=== PATIENT | female | born 1935 | race Caucasian/White ===

== ENCOUNTER → 2016-08-23 | Outpatient (CLI) | payer MEDICARE, OTHER ==
[~2016-08-23] MED LIST: 'CLONIDINE0.1 MG PO; ASPIR 8181 MG PO; CIPROFLOXACIN500 MG PO; CLARITIN10 MG PO; CLONIDINE0.2 MG PO; COZAAR100 MG PO; COZAAR25 MG PO; Catapres-Tts 10.1 MG PO; FIBER LAXATIVE500 MG PO; GLIPIZIDE10 MG PO; HYDR25T PO; HYZAAR 50/12.5M1 TAB PO; LORAZEPAM0.5 MG PO; LOSARTAN POTASS1 TAB PO; LOTRISONE 0.05%1 CRE TP; METFORMIN1000 MG PO; METOPROLOL SUCC50 M1 PO; OXYBUTYNIN5 MG PO; SYNTHROID,LEVO75 MCG PO; VISTARIL50 MG PO; ZITHROMAX Z PA250 MG PO; ZOFRAN4 MG PO
== END | disposition home or self-care (01) ==
LOC: US 13:12
DX: I73.9 Peripheral vascular disease, unspecified (principal); M79.89 Other specified soft tissue disorders

== ENCOUNTER 2018-06-25 15:26 | Inpatient (IN) | payer MEDICARE ==
[~2018-06-25] VITALS: Ht 160 cm; Wt 67.3 kg
--- NOTE | ~2018-06-25 | WRIGHTHP ---
[place], [place] PATIENT HISTORY AND PHYSICAL EXAM NAME: LESLIE RODRIGUEZ [facility] #: [id number] UNIT #: [id number] ROOM: 525 DOCTOR: DEIDRE COVARRUBIAS MD BIRTHDATE: [birth year] DOS: 06/25/2018 HISTORY OF PRESENT ILLNESS: This patient is very well known to us, comes in with complaints of abdominal pain about 3 days duration. The patient states that she was eating a lot of popcorn and peanuts and about 3 days ago, she noticed that her abdomen was starting to hurt. She denies having any chest pains or palpitations, does not have any fever or chills, does not have any nausea and emesis. PAST MEDICAL HISTORY: Significant for; 1. Benign hypertension, poorly controlled. 2. Hypothyroidism. 3. Type 2 diabetes mellitus, non-insulin dependent. MEDICATIONS: That she is on are Lasix 40 daily, glipizide 10 daily, levothyroxine 88 mcg daily, metformin 1000 b.i.d., metoprolol 50 daily, minoxidil 2.5 mg b.i.d. SOCIAL HISTORY: Nonsmoker, does not use any alcohol. Lives at home. PHYSICAL EXAMINATION: GENERAL: She is awake and alert and oriented. VITAL SIGNS: Graphic trend shows a pressure of 132/70 this morning, but her pressure was 200 systolic, during the night. NECK: Supple. No lymph nodes. LUNGS: Diminished breath sounds. No wheezes, rales or rhonchi heard. HEART: Regular. ABDOMEN: Obese, soft. Tenderness diffusely, more on the right side of the abdomen, the right lower quadrant. EXTREMITIES: Without any edema. ASSESSMENT AND PLAN: 1. Acute diverticulitis. The patient has been placed on IV antibiotics and IV fluids. We will start on a clear liquid diet. GI consultation has been obtained. 2. Benign hypertension, poorly controlled, readjust antihypertensives. 3. Type 2 diabetes mellitus, non-insulin dependent. Hold oral antidiabetics since the patient is not eating well, we will restart when the patient is better. 4. Acute kidney injury, possibly from infectious process. IV fluids will be ordered and redo basic metabolic panel, metformin may not be a good medication first and the GFR is below 30. 5. Anemia. Check iron, B12 and folic acid level and treat accordingly. [place], [place] PATIENT HISTORY AND PHYSICAL EXAM NAME: LESLIE RODRIGUEZ UNIT #: [id number] ROOM: [facility] DOCTOR: DEIDRE COVARRUBIAS MD BIRTHDATE: [birth year] DEIDRE COVARRUBIAS MD CM:HISPHYS:PATIENT HISTORY AND PHYSICAL EXAMINATION 5 7 DEIDRE COVARRUBIAS MD 06/26/18907 interface
--- NOTE | ~2018-06-25 | CON ---
[place], [place] REPORT OF CONSULTATION NAME: LESLIE RODRIGUEZ UNIT #: [id number] ROOM: 525 DOCTOR: NINA JEFFERSONJUWAN BIRTHDATE: [birth year] DOS: 06/26/2018 GASTROINTESTINAL CONSULTATION HISTORY OF PRESENT ILLNESS: An 82-year-old patient who presented with right lower and right upper quadrant pain, had to be admitted through the Emergency Room after she was found to have white blood cell of 12 with H and H of 10 and 31. Comprehensive metabolic panel: BUN and creatinine 42 and 2.0. GFR of 28. Electrolytes balance, liver function tests, amylase, and lipase within normal limit. CT scan of the abdomen and pelvis was done. Findings most consistent with diverticulitis involving the ascending colon noticed. CBC differential was reassessed. H and H dropped to 7.9 and 24, white blood cell of 6 after start of Flagyl and ciprofloxacin was noticed. Iron was 27. B12 and folate was 208 and greater than 24 respectively. PAST MEDICAL HISTORY: Associated hypertension, anxiety, right upper quadrant pain, and diverticulosis. PAST SURGICAL HISTORY: Associated with ventral hernia and repair and mesh placement. SOCIAL HISTORY: Nonsmoker, nonalcohol consumer. FAMILY HISTORY: Noncontributory. MEDICATIONS: List has been reviewed including levothyroxine supplementation. ALLERGIES: CODEINE, QUININE, IVP DYE. REVIEW OF SYSTEMS: HEENT: Denies double vision, blurred vision. RESPIRATORY: Denies shortness of breath. CARDIOVASCULAR: Denies chest pain. DIGESTIVE SYSTEM: Right upper quadrant pain. A colonoscopy approximately 2 years ago. PHYSICAL EXAMINATION: VITAL SIGNS: Appear to be stable. HEENT: Within normal limit. NECK: Supple, no thyromegaly. CHEST: Symmetric anatomy, equal expansion. HEART: Irregular irregularity with a soft grade 2/6 systolic murmur. ABDOMEN: Soft. Some tenderness in right middle ascending colon was experienced. Bowel sounds present. She has a ventral hernia upon exertion. A vertical incision line from subxiphoid to supraumbilical area was noticed. EXTREMITIES: A 2+ edema in left leg and 1+ edema in right leg was noticed. NEUROLOGIC: Alert and oriented to time, place, and person. LABORATORY DATA: Labs reviewed, records reviewed. [place], [place] REPORT OF CONSULTATION NAME: LESLIE RODRIGUEZ UNIT #: [id number] ROOM: [facility] DOCTOR: NINA JEFFERSON,JUWAN BIRTHDATE: [birth year] IMPRESSION: Diverticulitis of mid ascending colon, hypertension, hypothyroidism, and anxiety. All has been recognized. Leukocytosis has been recognized. PLAN AND DISCUSSION: We will continue with ciprofloxacin as well as Flagyl therapy and clinically reassess once the pain dissipates then we can switch her to p.o. same medications for a duration of 10 days to complete. Thank you very much indeed. JUWAN WOOD MD CM:CONSTR:REPORT OF CONSULTATION [id number] 07/04/18 1316 interface
--- NOTE | ~2018-06-25 | DS ---
[place], [place] DISCHARGE SUMMARY NAME: LESLIE RODRIGUEZ UNIT #: [id number] ROOM: 525 DOCTOR: DEIDRE COVARRUBIAS MD BIRTHDATE: [birth year] DOS: 06/28/2018 DIAGNOSES: 1. Acute diverticulitis of ascending colon. 2. Chronic kidney disease with acute kidney injury, stage 4. 3. Hypothyroidism. 4. Benign hypertension, poorly controlled. 5. Type 2 diabetes mellitus, becoming insulin-dependent now. History of perforated bowel and repair, history of hernia surgery, anemia of chronic disease, B12 deficiency. HOSPITAL COURSE: The patient is 82 years old, is known to us, comes in with complaint of abdominal pain. Please refer to H and P for details. After admission, the patient was found to have diverticulitis versus an ascending colon on a CT of the abdomen and pelvis. The patient was placed on IV antibiotics and was admitted. Dr. Segura was consulted who agreed on the treatment plan. She was placed on a clear liquid diet. Her diabetic meds were on hold because of clear liquid diet. She also has underlying chronic kidney disease with worsening of the kidney functions and with GFR is below 30. So she is no longer a candidate for metformin, which will be discontinued and placed on Lantus, glipizide has also been discontinued. Diabetic teaching will be offered before discharge. She also does have anemia, which is found to have both B12 deficiency and anemia of chronic disease. The patient did receive one dose of Ferrlecit here. She will follow up with doctor and receive the Epogen injections as an outpatient. The patient is encouraged to have a colonoscopy also as an outpatient. She sees [facility] for that. DISCHARGE MEDICATIONS: Cipro 500 b.i.d., insulin 15 units subcutaneous at 5:00 p.m., clonidine 0.2 mg at bedtime, metoprolol 50 daily, levothyroxine 88 mcg daily, Lasix 40 daily, minoxidil 2.5 b.i.d. [place], [place] DISCHARGE SUMMARY NAME: LESLIE RODRIGUEZ UNIT #: [id number] ROOM: 525 DOCTOR: DEIDRE COVARRUBIAS MD BIRTHDATE: [birth year] DEIDRE COVARRUBIAS MD CM:MARII [phone] DEIDRE COVARRUBIAS MD 07/10/18 0901 interface
--- NOTE | ~2018-06-25 | PR ---
[place], [place] PROGRESS NOTE NAME: [id number] UNIT #: [id number] ROOM: 525 DOCTOR: DEIDRE COVARRUBIAS MD BIRTHDATE: [birth year] DOS: 06/28/2018 SUBJECTIVE: The patient is doing better, does not have any new complaints, but abdominal pain is much improved. OBJECTIVE: VITAL SIGNS: Blood pressure is 124/66, pulse of 50, respirations 20, temperature 98.1. LUNGS: Diminished breath sounds, clear. HEART: Regular. ABDOMEN: Obese, soft. Tenderness is much improved in the right lower quadrant. EXTREMITIES: Without any edema. LABORATORY DATA: Shows WBC count is 4.9, hemoglobin 7.9, hematocrit 24.6, platelets 195. BMP: Glucose 128, BUN 24, creatinine 1.65, GFR 30, sodium 140, potassium 3.9, chloride 112, bicarbonate 22. ASSESSMENT AND PLAN: 1. Acute diverticulitis of the ascending colon. The patient is clinically much improved. We will give her a diet today and if stable, the plan is to discharge her to home. 2. Type 2 diabetes mellitus. She has not received the metformin and glipizide because of her diet has been clear liquids only. Unfortunately, because of the chronic kidney disease and GFR of 30, we will have to discontinue the metformin, discontinue glipizide also and placed on a low dose Lantus. Diabetic teaching will be ordered. 3. Benign hypertension, better controlled after adding clonidine. The patient is stable and can be discharged. The patient to follow with [facility] as well as doctor for her anemia. DEIDRE COVARRUBIAS MD CM:PNTRANS DEIDRE COVARRUBIAS MD 07/10/18 0902 interface
--- NOTE | ~2018-06-25 | PR ---
[place], [place] PROGRESS NOTE NAME[id number] #: [id number] ROOM: 525 DOCTOR: DEIDRE COVARRUBIAS MD BIRTHDATE: [birth year] DOS: 06/27/2018 SUBJECTIVE: The patient states that she feels much better, does not have any complaints. Appreciate Dr. Segura's input. OBJECTIVE: VITAL SIGNS: Blood pressure is 162/64, pulse of 48, respirations 16, temperature 98.2. LUNGS: Diminished breath sounds, clear. HEART: Regular. ABDOMEN: Obese, soft, some diffuse tenderness present mostly in the right lower quadrant. EXTREMITIES: Without any edema. LABORATORY DATA: Shows an iron which is 27, ferritin which is 43.4. B12 was 208, iron binding capacity is 307. WBC count is 4.6, hemoglobin is 7.6, hematocrit 23.3. BMP: Glucose 86, BUN 37, creatinine 1.81, GFR 27, sodium 138, potassium 3.7, chloride 107, bicarbonate 23. ASSESSMENT AND PLAN: 1. Acute diverticulitis on IV antibiotics. GI following, is mostly in the ascending colon. 2. Acute kidney injury. The kidney function seems to be slightly better. Creatinine is slightly better. GFR is still pretty low suggestive of stage 4 kidney failure. 3. Anemia, Ferrlecit will be ordered today. 4. B12 deficiency. We will start B12 injections. 5. Benign hypertension, poorly controlled. Further adjustments in medications to be made. DEIDRE COVARRUBIAS MD CM:PNGIFTY [id number] DEIDRE COVARRUBIAS MD 06/27/18 0950 interface
[~2018-06-25 15:26] MED LIST changes: +GLIPIZIDE10 M2 PO; -GLIPIZIDE10 MG PO
[2018-06-25 15:42] VITALS: BP 178/68
[2018-06-25] MEDS ORDERED: Synthroid,Levo88 MCG PO (15:58)
[2018-06-25] MEDS ORDERED: LASIX40 MG PO (16:00)
[2018-06-25] MEDS ORDERED: MINOXIDIL2.5 MG PO (16:01)
[2018-06-25 16:14] LABS: BASO # 0.1 10*3/uL (0.0-0.1); BASO % 0.4 % (0.0-1.0); EOS # 0.1 10*3/uL (0.0-0.4); EOS % 1.1 % (1.0-4.0); HEMATOCRIT 31.7 % (37.0-47.0); HEMOGLOBIN 10.5 g/dl (12.0-16.0); LYMPH # 1.2 10*3/uL (1.3-4.4); LYMPH % 9.7 % (27.0-41.0); MEAN CELL VOLUME 83.6 fl (81.0-99.0); MEAN CORPUSCULAR HGB 27.7 pg (27.0-31.0); MEAN CORPUSCULAR HGB CONC 33.1 g/dl (33.0-37.0); MEAN PLATELET VOLUME 12.1 fl (9.6-12.3); MONO # 1.1 10*3/uL (0.1-1.0); MONO % 8.6 % (3.0-9.0); NEUT # 9.8 10*3/uL (2.3-7.9); PLATELET COUNT AUTOMATED 254 10*3/uL (130-400); RED BLOOD COUNT 3.79 10*6/uL (4.10-5.10); RED CELL DISTRI WIDTH 13.5 % (0-14.5); WHITE BLOOD COUNT 12.3 10*3/uL (4.8-10.8)
[2018-06-25 16:29] LABS: ALBUMIN 4.1 gm/dl (3.1-4.5); CREATININE 2.04 mg/dL (0.55-1.02); POTASSIUM 4.5 mmol/L (3.5-5.1); TOTAL PROTEIN 8.1 gm/dL (6.4-8.2)
[2018-06-25 17:11] LABS: BILIRUBIN NEGATIVE (NEGATIVE); BLOOD NEGATIVE (NEGATIVE); CLARITY CLEAR (CLEAR); COLOR YELLOW (YELLOW); GLUCOSE NEGATIVE (NEGATIVE); KETONE NEGATIVE (NEGATIVE); LEUKO ESTERASE NEGATIVE (NEGATIVE); NITRITE NEGATIVE (NEGATIVE); PH 5.5 (5.0-9.0); UROBILINOGEN 0.2 E.U./dl (0.2-1.0)
[2018-06-25 17:17] LABS: BACTERIA TRACE; EPITHELIAL CELLS 0-3; WBC 0-2 wbc/hpf (0-5)
[2018-06-25 20:00] VITALS: BP 189/53
[2018-06-26] VITALS: BP 106/38
[2018-06-26 07:10] LABS: BASO # 0.1 10*3/uL (0.0-0.1); BASO % 0.8 % (0.0-1.0); EOS # 0.1 10*3/uL (0.0-0.4); EOS % 2.2 % (1.0-4.0); LYMPH # 1.4 10*3/uL (1.3-4.4); LYMPH % 22.4 % (27.0-41.0); MEAN CELL VOLUME 84.8 fl (81.0-99.0); MEAN CORPUSCULAR HGB 27.3 pg (27.0-31.0); MEAN CORPUSCULAR HGB CONC 32.2 g/dl (33.0-37.0); MEAN PLATELET VOLUME 12.9 fl (9.6-12.3); MONO # 0.9 10*3/uL (0.1-1.0); MONO % 15.1 % (3.0-9.0); NEUT # 3.6 10*3/uL (2.3-7.9); NEUT % 59.3 % (47.0-73.0); PLATELET COUNT AUTOMATED 189 10*3/uL (130-400); RED BLOOD COUNT 2.89 10*6/uL (4.10-5.10); RED CELL DISTRI WIDTH 13.5 % (0-14.5)
[2018-06-26 07:14] LABS: HEMATOCRIT 24.5 % (37.0-47.0); HEMOGLOBIN 7.9 g/dl (12.0-16.0)
[2018-06-26 07:28] LABS: CREATININE 2.25 mg/dL (0.55-1.02); POTASSIUM 4.1 mmol/L (3.5-5.1)
[2018-06-26 08:00] VITALS: BP 127/49
[2018-06-26 10:23] LABS: IRON 27 ug/dL (50-170); TOTAL IRON BINDING CAPACITY 307 ug/dl (250-450)
[2018-06-26 11:04] LABS: FERRITIN 43.4 ng/mL (10.0-291.0)
[2018-06-26 12:00] VITALS: BP 136/46
[2018-06-26 16:00] VITALS: BP 142/51
[2018-06-26 20:00] VITALS: BP 149/58
[2018-06-27] VITALS: BP 144/52
[2018-06-27 07:08] LABS: BASO % 0.6 % (0.0-1.0); EOS # 0.2 10*3/uL (0.0-0.4); HEMATOCRIT 23.3 % (37.0-47.0); HEMOGLOBIN 7.6 g/dl (12.0-16.0); LYMPH % 20.7 % (27.0-41.0); MEAN CELL VOLUME 84.1 fl (81.0-99.0); MEAN CORPUSCULAR HGB 27.4 pg (27.0-31.0); MEAN CORPUSCULAR HGB CONC 32.6 g/dl (33.0-37.0); MONO # 0.7 10*3/uL (0.1-1.0); MONO % 15.6 % (3.0-9.0); NEUT # 2.7 10*3/uL (2.3-7.9); NEUT % 57.9 % (47.0-73.0); PLATELET COUNT AUTOMATED 186 10*3/uL (130-400); RED BLOOD COUNT 2.77 10*6/uL (4.10-5.10); RED CELL DISTRI WIDTH 13.4 % (0-14.5); WHITE BLOOD COUNT 4.6 10*3/uL (4.8-10.8)
[2018-06-27 07:48] LABS: POTASSIUM 3.7 mmol/L (3.5-5.1)
[2018-06-27 07:49] LABS: CREATININE 1.81 mg/dL (0.55-1.02)
[2018-06-27 08:00] VITALS: BP 162/64
[2018-06-27 16:00] VITALS: BP 133/49
[2018-06-27 20:00] VITALS: BP 166/58
[2018-06-28] VITALS: BP 124/66
[2018-06-28 06:30] LABS: BASO % 0.8 % (0.0-1.0); EOS # 0.2 10*3/uL (0.0-0.4); EOS % 3.9 % (1.0-4.0); HEMATOCRIT 24.6 % (37.0-47.0); HEMOGLOBIN 7.9 g/dl (12.0-16.0); LYMPH # 0.8 10*3/uL (1.3-4.4); LYMPH % 15.9 % (27.0-41.0); MEAN CELL VOLUME 85.1 fl (81.0-99.0); MEAN CORPUSCULAR HGB 27.3 pg (27.0-31.0); MEAN CORPUSCULAR HGB CONC 32.1 g/dl (33.0-37.0); MEAN PLATELET VOLUME 12.3 fl (9.6-12.3); MONO # 0.8 10*3/uL (0.1-1.0); MONO % 15.7 % (3.0-9.0); NEUT # 3.1 10*3/uL (2.3-7.9); NEUT % 63.5 % (47.0-73.0); PLATELET COUNT AUTOMATED 195 10*3/uL (130-400); RED BLOOD COUNT 2.89 10*6/uL (4.10-5.10); RED CELL DISTRI WIDTH 13.5 % (0-14.5); WHITE BLOOD COUNT 4.9 10*3/uL (4.8-10.8)
[2018-06-28 08:00] VITALS: BP 127/61
[2018-06-28 08:01] LABS: CREATININE 1.65 mg/dL (0.55-1.02); POTASSIUM 3.9 mmol/L (3.5-5.1)
[2018-06-28] MEDS ORDERED: CIPRO500 MG PO (08:39)
[2018-06-28] MEDS ORDERED: LANTUS SOL100 UNIT/1 SC (08:39)
[2018-06-28] MEDS ORDERED: CLONIDINE0.2 MG PO (08:40)
== END 2018-06-28 14:59 | disposition home health service (06) | DRG 391 ==
LOC: ED 15:26 → 5E 19:21 → EDHOLD 19:21 → 5E 19:30
PROVIDERS: Internal Medicine; Nurse Practitioner Family
DX: K57.32 Diverticulitis of large intestine without perforation or abscess without bleeding (principal); N17.0 Acute kidney failure with tubular necrosis; N18.4 Chronic kidney disease, stage 4 (severe); F41.9 Anxiety disorder, unspecified; I12.9 Hypertensive chronic kidney disease with stage 1 through stage 4 chronic kidney disease, or unspecified chronic kidney disease; E53.8 Deficiency of other specified B group vitamins; D63.8 Anemia in other chronic diseases classified elsewhere; E11.22 Type 2 diabetes mellitus with diabetic chronic kidney disease; E03.9 Hypothyroidism, unspecified; Z88.5 Allergy status to narcotic agent; Z88.1 Allergy status to other antibiotic agents; Z91.041 Radiographic dye allergy status

== ENCOUNTER → 2019-03-21 | Outpatient (CLI) | payer MEDICARE ==
[~2019-03-21] MED LIST changes: +CIPRO500 MG PO; +LANTUS SOL100 UNIT/1 SC; +LASIX40 MG PO; +MINOXIDIL2.5 MG PO; +Synthroid,Levo88 MCG PO
== END | disposition home or self-care (01) ==
LOC: US 11:58
DX: R60.0 Localized edema (principal); D64.9 Anemia, unspecified

== ENCOUNTER → 2019-04-11 | Outpatient (CLI) | payer MEDICARE ==
[~2019-04-11] MED LIST changes: +BUMETANIDE1 MG PO; +CLONIDINE HCL0.2 MG PO; +HYDRALAZINE HYD50 MG PO; +NORMODYNE,TRAN200 MG PO
[2019-04-11 12:44] LABS: ALBUMIN 3.9 gm/dl (3.1-4.5); CREATININE 1.97 mg/dL (0.55-1.02); POTASSIUM 4.7 mmol/L (3.5-5.1); TOTAL PROTEIN 7.4 gm/dL (6.4-8.2)
== END | disposition home or self-care (01) ==
LOC: LAB 11:35
PROVIDERS: Internal Medicine
DX: N18.3 Chronic kidney disease, stage 3 (moderate) (principal)

== ENCOUNTER 2019-04-19 15:30 | Inpatient (IN) | payer MEDICARE ==
[2019-04-19] VITALS (9 sets, daily range): BP systolic 158–243; BP diastolic 53–88
[~2019-04-19] VITALS: Ht 162.5 cm; Wt 58.5 kg
[~2019-04-19 15:30] MED LIST changes: -BUMETANIDE1 MG PO; -CLONIDINE HCL0.2 MG PO; -HYDRALAZINE HYD50 MG PO; -NORMODYNE,TRAN200 MG PO
[2019-04-19 16:26] LABS: BASO # 0.1 10*3/uL (0.0-0.1); EOS # 0.2 10*3/uL (0.0-0.4); EOS % 3.3 % (1.0-4.0); HEMATOCRIT 31.7 % (37.0-47.0); HEMOGLOBIN 10.3 g/dl (12.0-16.0); LYMPH # 1.3 10*3/uL (1.3-4.4); LYMPH % 18.9 % (27.0-41.0); MEAN CELL VOLUME 79.4 fl (81.0-99.0); MEAN CORPUSCULAR HGB 25.8 pg (27.0-31.0); MEAN CORPUSCULAR HGB CONC 32.5 g/dl (33.0-37.0); MONO # 0.7 10*3/uL (0.1-1.0); MONO % 10.6 % (3.0-9.0); NEUT # 4.5 10*3/uL (2.3-7.9); NEUT % 65.9 % (47.0-73.0); PLATELET COUNT AUTOMATED 223 10*3/uL (130-400); RED BLOOD COUNT 3.99 10*6/uL (4.10-5.10); RED CELL DISTRI WIDTH 16.3 % (0-14.5); WHITE BLOOD COUNT 6.9 10*3/uL (4.8-10.8)
[2019-04-19 16:40] LABS: ACT PARTIAL THROMBO TIME 23.8 SECONDS (20.0-32.1); INTERNATIONAL NORM RATIO 0.9 (2.0-3.5)
[2019-04-19 16:40] LABS: BILIRUBIN NEGATIVE (NEGATIVE); BLOOD TRACE-INTACT (NEGATIVE); CLARITY CLEAR (CLEAR); COLOR YELLOW (YELLOW); GLUCOSE NEGATIVE (NEGATIVE); KETONE NEGATIVE (NEGATIVE); LEUKO ESTERASE NEGATIVE (NEGATIVE); NITRITE NEGATIVE (NEGATIVE); UROBILINOGEN 0.2 E.U./dl (0.2-1.0)
[2019-04-19 16:41] LABS: ALBUMIN 3.6 gm/dl (3.1-4.5); ALKALINE PHOSPHATASE 69 U/L (45-117); BUN 33 mg/dl (7-24); CHLORIDE 103 mmol/L (98-107); CREATININE 1.71 mg/dL (0.55-1.02); LIPASE 182 U/L (73-393); POTASSIUM 4.4 mmol/L (3.5-5.1); SGOT/AST 21 IU/L (3-35); SGPT/ALT 20 U/L (12-78); SODIUM 135 mmol/L (136-145); TOTAL PROTEIN 6.9 gm/dL (6.4-8.2)
[2019-04-19 16:44] LABS: TROPONIN I < 0.015 ng/ml (<0.045)
[2019-04-19 16:47] LABS: EPITHELIAL CELLS 0-2; RBC 0-2 rbc/hpf (0-2)
--- NOTE | 2019-04-19 18:41 | NUR ---
A 83, admitted to 5E, under the services of DEIDRE Palm MD with a diagnosis of CHF, HTN. Chief complaint is LOWER LEG EDEMA. Patient arrived via ambulatory from ER. Monitor applied. Initial assessment completed. Vital signs taken and recorded. DEIDRE PALM MD notified of admission to the unit. Orders received. See assessment for past medical history, medications and allergies. Patient and/or family oriented to unit. [facility] visitation policy reviewed. Clothing/patient valuable form completed. ROYAL ESTRELLA
[2019-04-19] MEDS ORDERED: CLONIDINE HCL0.2 MG PO (18:59)
--- NOTE | 2019-04-19 20:51 | NUR ---
CONSULT CALLED TO DR MONROY PER ORDER. SPOKE WITH DR RO AND NOTIFIED PHYSICIAN OF ALL ASSESSMENT FINDINGS. NEW ORDERS RECEIVED FOR A ONE TIME DOSE OF 2MG BUMEX VIA IV NOW. PHYSICIAN STATES THAT DR MONROY WILL SEE PATIENT IN THE MORNING. WILL NOTIFY PATIENT OF NEW ORDERS.
--- NOTE | 2019-04-19 21:08 | NUR ---
PT GIVEN EVENING MEDICATIONS AT THIS TIME. ASSESSMENT COMPLETE. PT STATES THAT SHE FEELS ANXIOUS. PT BLOOD PRESSURE ELEVATED AT THIS TIME. WILL NOTIFY PHYSICIANS. PT LYING IN BED, ALL SAFETY MEASURES IN PLACE. CALL LIGHT.
--- NOTE | 2019-04-19 21:55 | NUR ---
SPOKE WITH DR COVARRUBIAS REGARDING PT ANXIETY. NEW ORDERS RECEIVED TO GIVE PATIENT 0.5 MG PO ATIVAN X 1 NOW. WILL MEDICATE PATIENT WHEN MEDICATION VERIFIED. WILL NOTIFY PATIENT OF NEW ORDERS.
--- NOTE | 2019-04-19 22:26 | NUR ---
PT GIVEN 2 MG BUMEX VIA IV AND 0.5 MG PO ATIVAN AT THIS TIME. WILL MONITOR FOR EFFECTIVENESS. CALL LIGHT IN REACH.
--- NOTE | 2019-04-19 23:26 | NUR ---
ATIVAN EFFECTIVE PER PT.
[2019-04-20] VITALS (7 sets, daily range): BP systolic 150–162; BP diastolic 56–68
[2019-04-20 06:18] LABS: BASO # 0.1 10*3/uL (0.0-0.1); BASO % 1.1 % (0.0-1.0); EOS # 0.2 10*3/uL (0.0-0.4); EOS % 3.3 % (1.0-4.0); HEMATOCRIT 31.2 % (37.0-47.0); HEMOGLOBIN 10.1 g/dl (12.0-16.0); LYMPH # 1.2 10*3/uL (1.3-4.4); LYMPH % 18.2 % (27.0-41.0); MEAN CELL VOLUME 78.6 fl (81.0-99.0); MEAN CORPUSCULAR HGB 25.4 pg (27.0-31.0); MEAN CORPUSCULAR HGB CONC 32.4 g/dl (33.0-37.0); MEAN PLATELET VOLUME 13.4 fl (9.6-12.3); MONO # 0.8 10*3/uL (0.1-1.0); NEUT # 4.1 10*3/uL (2.3-7.9); NEUT % 65.1 % (47.0-73.0); PLATELET COUNT AUTOMATED 192 10*3/uL (130-400); RED BLOOD COUNT 3.97 10*6/uL (4.10-5.10); RED CELL DISTRI WIDTH 16.3 % (0-14.5); WHITE BLOOD COUNT 6.3 10*3/uL (4.8-10.8)
[2019-04-20 06:22] LABS: CHOLESTEROL 152 mg/dL (<200); HDL CHOLESTEROL 57 mg/dl (40-60); LDL CHOLESTEROL 77 mg/dL (9-159); TRIGLYCERIDES 89 mg/dl (<150); VLDL CHOLESTEROL 18 mg/dL (6-40)
--- NOTE | 2019-04-20 09:00 | NUR ---
Notcher in to talk to patient. Patient states lives at home alone with her 2 boys checking in on her. There are basement steps in the home. Physician: Dr. Veronica Neff Pharmacy: [facility] Home health services: none Patient's level of ADLs: INDEPENDENT Patient has working utilities: yes DME: acorn power chair, chair lift, cane, BSC Follow-up physician's appointment after d/c: she prefers to make her own follow up appt after discharge Does patient want to access PORTAL?: no Discharge plan discussed with patient. She lives at home alone with her 2 sons checking in on her. She is independent in her ADLs and occasionally uses a cane for ambulation when she feels uneasy. She did just get a new acorn power chair and has a chair lift in the living room. She does have basement steps where her laundry is located. She states she has a day bed on her sun porch she can use if she is not able to go upstairs. Discussed home health care services and she denies any home needs at this time. When medically stable she will be discharged to home. Son will transport om discharge. FRED SANTANA
--- NOTE | 2019-04-20 10:23 | NUR ---
requests to eat breakfast first. will return to complete echo.
--- NOTE | 2019-04-20 19:00 | NUR ---
BEDSIDE REPORT RECEIVED AT THIS TIME. PT SITTING UP IN BED, ALERT ORIENTED AND PLEASANT MOOD. PT HAS NO COMPLAINTS AT THIS TIME. RESPIRATIONS EASY AND UNLABORED ON ROOM AIR. WILL CONTINUE TO MONITOR. ALL SAFETY MEASURES IN PLACE. CALL LIGHT IN REACH.
--- NOTE | 2019-04-20 22:39 | NUR ---
PT C/O ANXIETY AND REQUESTS DOSE OF 0.5 MG PO ATIVAN, THIS IS TAKEN A HOME MEDICATION. NEW ORDERS OBTAINED FOR 0.5 MG PO ATIVAN. WILL MEDICATE PT WHEN IT IS AVAILABLE. PT AWARE.
--- NOTE | 2019-04-20 23:55 | NUR ---
LANTUS DOSAGE CHANGED FROM 15 UNITS TO 7 UNITS PER PATIENT STATING THAT IS THE DOSAGE THAT SHE TAKES AT HOME.
[2019-04-21] VITALS: BP 150/68
--- NOTE | 2019-04-21 01:42 | NUR ---
24 HR chart check completed.
--- NOTE | 2019-04-21 02:19 | NUR ---
SLEEPING RESP. EASY AND REG. NO ACUTE DISTRESS NOTED.
--- NOTE | 2019-04-21 05:57 | NUR ---
PT. UP TO BATHROOM BUT HEART BEAT WAS SINUS ARRHYTHMIA, BBB AND THEN SWITCHED BACK AGAIN TO SINUS ARRHYTHMIA. SHE DID THIS SAME THING YESTERDAY MORNING.
[2019-04-21 06:49] LABS: CREATININE 1.88 mg/dL (0.55-1.02)
[2019-04-21 12:02] VITALS: BP 176/69
[2019-04-21 16:00] VITALS: BP 182/52
[2019-04-21 20:00] VITALS: BP 218/84; BP 221/72
--- NOTE | 2019-04-21 20:05 | NUR ---
BP RECHECKED 218/84 HR FLUCTUATES BETWEEN 40'S TO 50'S CALLED DR. MONROY ANSWERING SERVICE AND HE IS TO CALL BACK.
--- NOTE | 2019-04-21 20:08 | NUR ---
DR. MONROY CALLED IN AND NOTIFIED OF BP AND HR AND MEDICATIONS. ORDERS RECEIVED TO GIVEN CLONIDINE 0.2MG NOW AND START MINOXIDIL TONIGHT 2.5MG BID.
--- NOTE | 2019-04-21 20:45 | NUR ---
CATAPRESS GIVEN PER ORDER FOR ELEVATED BP. PT. CONCERNED WITH STARTING BACK ON MEDICATIONS AND TAKING ALL THIS MEDICATION FOR HER BP. PATIENT CALLED HER SON HEIDI AND THIS RN SPOKE WITH HIM EXPLAINED WHAT WAS GOING ON WITH HER CARE AND WHY. HEIDI VOICED UNDERSTANDING AND SPOKE WITH HIS MOM.
[2019-04-21] MEDS ORDERED: LORAZEPAM0.5 MG PO (20:49)
--- NOTE | 2019-04-21 21:05 | NUR ---
CALLED AND SPOKE WITH DR. ASHRAF ABOUT PT. CONDITION AND ORDERS FROM DR. MONROY AND PT. FEELING ANXIOUS. ORDER RECEIVED FOR ATIVAN.
[2019-04-21 21:53] VITALS: BP 168/70
--- NOTE | 2019-04-21 22:00 | NUR ---
HELD COREG BECAUSE HEART RATE WAS 40'S TO 50'S. AND PT. AGREED.
[2019-04-22] VITALS (8 sets, daily range): BP systolic 128–158; BP diastolic 43–70
--- NOTE | 2019-04-22 06:00 | NUR ---
BP WAS 128/46 PT. DID NOT WANT BP MEDICATION GIVEN AT THIS TIME. WILL RECHECK.
--- NOTE | 2019-04-22 06:39 | NUR ---
24 HR chart check completed.
--- NOTE | 2019-04-22 08:00 | NUR ---
BP RECHECKED PT. IS UP IN ROOM MOVING AROUND 158/70 APRESOLINE GIVEN AT THIS TIME.
--- NOTE | 2019-04-22 20:30 | NUR ---
PATIENT SITTING IN BED IN A POSITION OF COMFORT SCROLLING ON HER CELL PHONE. PATIENT ASSESSMENT COMPLETED AT THIS TIME, DENIES ANY CHEST PAIN/PRESSURE OR SHORTNESS OF BREATH AT THIS TIME. MEDICATIONS GIVEN ORALLY WITHOUT INCIDENT. CALL LIGHT WITHIN REACH. WILL CONTINUE TO MONITOR.
[2019-04-23] VITALS (10 sets, daily range): BP systolic 100–173; BP diastolic 40–76
--- NOTE | 2019-04-23 00:20 | NUR ---
RESTING IN BED IN A POSITION OF COMFORT, RESPIRATIONS EASY AND NON LABORED AT THIS TIME, DENIES ANY PAIN OR DISTRESS. CALL LIGHT WITHIN REACH. WILL CONTINUE TO MONITOR.
[2019-04-23] MEDS ORDERED: BUMETANIDE1 MG PO (08:13)
[2019-04-23] MEDS ORDERED: NORMODYNE,TRAN200 MG PO (08:13)
[2019-04-23] MEDS ORDERED: HYDRALAZINE HYD50 MG PO (08:13)
--- NOTE | 2019-04-23 09:12 | NUR ---
NURSE WAS ALERTED TO PATIENTS ROOM, PATIENT WAS IN BATHROOM SITTING IN A CHAIR AT THE SINK, PER PT SHE FELT DIZZY AND TIRED, PT WAS 66/34 MANUAL, CALLED FOR HELP TO GE PATIENT TRANSFERRED TO HER BED, PT THEN BECAME NAUSEA AND UNRESPONSIVE, PT TRANFERRED TO BED AND [facility] CALLED, VITALS WERE STABLE AND PATIENT REGAINED CONSCIOUSNESS, BP 140/70, OZ 94% ON RA, RESP 16, O2 2L ADMINSTERED FOR COMFORT, PATIENT COOL PALE AND CLAMY, PT UNABLE TO REMEMBER WHAT HAPPENED BUT WAS ALERT AND ORIENTED PERSON AND PLACE. [facility] WAS CANCELLED AND NOTIFIED, NEW ORDERS RECEIVED VIA , PT TE BE TRAMSFERRED TO ICU FOR MONITORING
[2019-04-23 09:16] LABS: BASO # 0.1 10*3/uL (0.0-0.1); EOS # 0.3 10*3/uL (0.0-0.4); EOS % 4.4 % (1.0-4.0); HEMATOCRIT 35.4 % (37.0-47.0); HEMOGLOBIN 11.8 g/dl (12.0-16.0); LYMPH # 1.8 10*3/uL (1.3-4.4); LYMPH % 23.7 % (27.0-41.0); MEAN CELL VOLUME 78.1 fl (81.0-99.0); MEAN CORPUSCULAR HGB CONC 33.3 g/dl (33.0-37.0); MEAN PLATELET VOLUME 12.2 fl (9.6-12.3); MONO # 0.8 10*3/uL (0.1-1.0); MONO % 10.8 % (3.0-9.0); NEUT # 4.6 10*3/uL (2.3-7.9); PLATELET COUNT AUTOMATED 232 10*3/uL (130-400); RED BLOOD COUNT 4.53 10*6/uL (4.10-5.10); RED CELL DISTRI WIDTH 16.1 % (0-14.5); WHITE BLOOD COUNT 7.7 10*3/uL (4.8-10.8)
[2019-04-23 09:32] LABS: ALBUMIN 3.6 gm/dl (3.1-4.5); ALKALINE PHOSPHATASE 70 U/L (45-117); BUN 44 mg/dl (7-24); CHLORIDE 96 mmol/L (98-107); CREATININE 2.39 mg/dL (0.55-1.02); POTASSIUM 4.3 mmol/L (3.5-5.1); SGOT/AST 21 IU/L (3-35); SGPT/ALT 20 U/L (12-78); SODIUM 133 mmol/L (136-145); TOTAL PROTEIN 6.9 gm/dL (6.4-8.2)
[2019-04-23 09:35] LABS: TROPONIN I < 0.015 ng/ml (<0.045)
--- NOTE | 2019-04-23 09:45 | NUR ---
PATIENT RECEIVED TO ICU 5 FROM 5E. PATIENT ALERT AND ORIENTED AT THIS TIME. PATIENT STATES THAT SHE REMEMBERS BEING IN THE BATHROOM AND THEN WAKING UP WITH ALOT OF PEOPLE STANDING AROUND HER. BLOOD PRESSURE 100/71. SB PER CM-RATE 40'S. CALLED REGARDING LAB WORK FROM [facility] RESPONSE AND CURRENT VITAL SIGNS. NEW ORDERS RECEIVED.
--- NOTE | 2019-04-23 10:30 | NUR ---
Sewer Inspector in to see patient. No new needs or request at this time. She states "this morning she went into the bathroom to get cleaned up and called and asked for a chair because she felt she needed to sit down. When they brought me a chair I laid my head on the sink. I do not remember passing out. I remember looking up once they got me in the bed and seeing all of these people and thinking it is not my time yet. " Discussed home health care services and short term SNF and she refuses either. When medically stable she will be discharged to home.
--- NOTE | 2019-04-23 19:41 | NUR ---
PT SITTING IN CHAIR. FEET UP ON CHAIR. VS TAKEN. CALL LIGHT IN REACH. PT WITHOUT COMPLAINTS.
--- NOTE | 2019-04-23 20:47 | NUR ---
UPDATED DR COVARRUBIAS ON ABP'S AND MANUAL BP ON MY SHIFT. ORDERS RECEIVED TO DC CURRENT DOSE OF HYDRALAZINE AND INCREASE TO 100MG QID. TO CONTINUE IVF ORDERED.
--- NOTE | 2019-04-23 21:41 | NUR ---
PT EXPRESSES CONCERN WITH INCREASE IN HYDRALAZINE DOSE RIGHT BEFORE BEDTIME. ONLY ONE 50MG TABLET GIVEN PER PT REQUEST.
[2019-04-24] VITALS: BP 161/49
--- NOTE | 2019-04-24 00:08 | NUR ---
ATIVAN GIVEN AT 2150 PER PT REQUEST WAS EFFECTIVE. PT STATES RELAXED AND RETURNS TO SLEEP EASILY AFTER ASSESSMENT.
--- NOTE | 2019-04-24 03:26 | NUR ---
PT SLEEPING. HR DOES DIP INTO THE MID 40'S BUT DOES NOT SUSTAIN THAT RATE...IT QUICKLY RETURNS TO THE 60'S-70'S.
[2019-04-24 06:22] LABS: CREATININE 1.89 mg/dL (0.55-1.02); POTASSIUM 4.5 mmol/L (3.5-5.1)
[2019-04-24 08:00] VITALS: BP 166/54
--- NOTE | 2019-04-24 10:30 | NUR ---
Correctional Casework Specialist in to see patient. No new needs or request at this time. Visiting with family at her bedside. She denies any home needs. When medically stable she will be discharged to home.
[2019-04-24 12:00] VITALS: BP 204/90
--- NOTE | 2019-04-24 12:00 | NUR ---
DR RO IN ICCU AT THIS TIME AND MADE AWARE OF PT'S BP OF 204/90. HE STATED TO CONTINUE WITH CURRENT MEDS AND HE WILL SPEAK WITH DR COVARRUBIAS HIMSELF ABOUT POSSIBLE ADDING ANOTHER BP MED.
[2019-04-24 13:50] VITALS: BP 154/90
--- NOTE | 2019-04-24 19:44 | NUR ---
PATIENT GIVEN CATAPRES EARLY DUE TO ELEV BP OF 180/68. PATIENT ALSO REQUESTED AN ATIVAN TO HELP SLEEP TONIGHT. PATIENT LEFT WITH CALL LIGHT IN REACH.
[2019-04-24 20:00] VITALS: BP 180/68
[2019-04-25] VITALS: BP 160/78
[2019-04-25 04:00] VITALS: BP 140/80
--- NOTE | 2019-04-25 07:37 | NUR ---
Shift chart check completed.24 HR chart check completed.
[2019-04-25 08:00] VITALS: BP 162/80
[2019-04-25] MEDS ORDERED: 'CLONIDINE0.1 MG PO (08:12)
[2019-04-25] MEDS ORDERED: HYDRALAZINE HYD50 MG PO (08:12)
[2019-04-25] MEDS ORDERED: AMLODIPINE BESYL5 MG PO (08:13)
[2019-04-25] MEDS ORDERED: BUMETANIDE1 MG PO (08:13)
[2019-04-25 09:50] VITALS: BP 164/80
--- NOTE | 2019-04-25 09:52 | NUR ---
PRN DOSE OF CATAPRES FOR BP OF 164/80
[2019-04-25 10:30] VITALS: BP 150/82
--- NOTE | 2019-04-25 10:47 | NUR ---
DISCHARGE INSTRUCTIONS TO PT. MONITOR AND IV REMOVED. PT DISCHARGED IN STABLE CONDITION WITH ALL OF HER BELONGINGS. SHE UNDERSTANDS SHE IS TO KEEP HER APPOINTMENT WITH DR COVARRUBIAS NEXT WEEK AND [facility].
== END 2019-04-25 11:55 | disposition home or self-care (01) | DRG 305 ==
LOC: ED 15:30 → 5E 17:47 → EDHOLD 17:47 → 5E 18:00 → ICCU 04-23 09:28
PROVIDERS: Internal Medicine; Nurse Practitioner Family; ADMIT Internal Medicine
DX: I16.1 Hypertensive emergency (principal); N17.9 Acute kidney failure, unspecified; N18.4 Chronic kidney disease, stage 4 (severe); F41.1 Generalized anxiety disorder; E11.22 Type 2 diabetes mellitus with diabetic chronic kidney disease; I89.0 Lymphedema, not elsewhere classified; R00.1 Bradycardia, unspecified; T44.7X5A Adverse effect of beta-adrenoreceptor antagonists, initial encounter; I95.9 Hypotension, unspecified; E11.40 Type 2 diabetes mellitus with diabetic neuropathy, unspecified; E03.9 Hypothyroidism, unspecified; D63.8 Anemia in other chronic diseases classified elsewhere; Z79.899 Other long term (current) drug therapy; Y92.89 Other specified places as the place of occurrence of the external cause; Z90.49 Acquired absence of other specified parts of digestive tract; Z90.710 Acquired absence of both cervix and uterus; Z82.3 Family history of stroke; Z82.49 Family history of ischemic heart disease and other diseases of the circulatory system; Z88.6 Allergy status to analgesic agent; Z88.8 Allergy status to other drugs, medicaments and biological substances; Z91.041 Radiographic dye allergy status; Z93.3 Colostomy status; R35.8 Other polyuria; R55 Syncope and collapse

== ENCOUNTER → 2019-05-07 | Outpatient (CLI) | payer MEDICARE ==
[~2019-05-07] MED LIST changes: +AMLODIPINE BESYL5 MG PO; +BUMETANIDE1 MG PO; +CLONIDINE HCL0.2 MG PO; +HYDRALAZINE HYD50 MG PO; +NORMODYNE,TRAN200 MG PO
[2019-05-07 11:06] LABS: CREATININE 1.76 mg/dL (0.55-1.02); POTASSIUM 4.2 mmol/L (3.5-5.1)
== END | disposition home or self-care (01) ==
LOC: LAB 10:10
PROVIDERS: Internal Medicine
DX: I12.9 Hypertensive chronic kidney disease with stage 1 through stage 4 chronic kidney disease, or unspecified chronic kidney disease (principal); E11.22 Type 2 diabetes mellitus with diabetic chronic kidney disease; N18.9 Chronic kidney disease, unspecified

== ENCOUNTER 2020-10-06 16:25 | Emergency (ER) | payer MEDICARE ==
[~2020-10-06] VITALS: Ht 160 cm; Wt 74.8 kg
== END 2020-10-06 21:43 | disposition home or self-care (01) ==
LOC: ED 16:25
DX: S00.03XA Contusion of scalp, initial encounter (principal); Z88.8 Allergy status to other drugs, medicaments and biological substances; Z91.041 Radiographic dye allergy status; Z79.4 Long term (current) use of insulin; Z79.899 Other long term (current) drug therapy; Z90.49 Acquired absence of other specified parts of digestive tract; Z90.711 Acquired absence of uterus with remaining cervical stump; Z98.890 Other specified postprocedural states; W19.XXXA Unspecified fall, initial encounter; Y93.89 Activity, other specified; Y92.89 Other specified places as the place of occurrence of the external cause; Y99.8 Other external cause status

== ENCOUNTER → 2020-12-17 | Outpatient (CLI) | payer MEDICARE | END | disposition home or self-care (01) | LOC: US 10:30 | PROVIDERS: ATTEND Internal Medicine Cardiovascular Disease | DX: I10 Essential (primary) hypertension (principal) ==

== ENCOUNTER 2020-12-18 21:03 | Emergency (ER) | payer MEDICARE ==
[~2020-12-18] VITALS: Ht 162.5 cm; Wt 77.1 kg
[2020-12-18 21:22] LABS: BILIRUBIN Negative (Negative); BLOOD Trace-Lysed (Negative); CLARITY Clear (Clear); COLOR Yellow (Yellow); GLUCOSE Negative (Negative); KETONE Negative (Negative); LEUKO ESTERASE Negative (Negative); NITRITE Negative (Negative); PH 6.5 (4.5-8.0); SPECIFIC GRAVITY <= 1.005 (1.001-1.030); UROBILINOGEN 0.2 E.U./dl (0.0-1.0)
[2020-12-18 21:36] LABS: BASO # 0.1 10*3/uL (0.0-0.1); BASO % 0.6 % (0.0-1.0); EOS # 0.2 10*3/uL (0.0-0.4); EOS % 1.7 % (1.0-4.0); HEMATOCRIT 41.4 % (37.0-47.0); LYMPH # 1.8 10*3/uL (1.3-4.4); LYMPH % 15.4 % (27.0-41.0); MEAN CELL VOLUME 82.8 fl (81.0-99.0); MEAN CORPUSCULAR HGB CONC 32.6 g/dl (33.0-37.0); MEAN PLATELET VOLUME 13.6 fl (9.6-12.3); MONO # 0.8 10*3/uL (0.1-1.0); MONO % 6.9 % (3.0-9.0); NEUT # 8.9 10*3/uL (2.3-7.9); NEUT % 75.1 % (47.0-73.0); PLATELET COUNT AUTOMATED 214 10*3/uL (130-400); RED CELL DISTRI WIDTH 14.5 % (0-14.5); WHITE BLOOD COUNT 11.8 10*3/uL (4.8-10.8)
[2020-12-18 21:38] LABS: EPITHELIAL CELLS 0-2; RBC 0-2 rbc/hpf (0-2); WBC 0-2 wbc/hpf (0-5)
[2020-12-18 21:52] LABS: ALBUMIN 3.9 gm/dl (3.1-4.5); ALKALINE PHOSPHATASE 115 U/L (45-117); BUN 57 mg/dl (7-24); CHLORIDE 103 mmol/L (98-107); CREATININE 1.82 mg/dL (0.55-1.02); SGOT/AST 15 IU/L (3-35); SGPT/ALT 23 U/L (12-78); SODIUM 134 mmol/L (136-145); TOTAL PROTEIN 8.2 gm/dL (6.4-8.2)
[2020-12-18 21:54] LABS: TROPONIN I < 0.015 ng/ml (<0.045)
== END 2020-12-19 03:18 | disposition short-term general hospital (02) ==
LOC: ED 21:03
PROVIDERS: Emergency Medicine
DX: I44.2 Atrioventricular block, complete (principal); I13.0 Hypertensive heart and chronic kidney disease with heart failure and stage 1 through stage 4 chronic kidney disease, or unspecified chronic kidney disease; N18.9 Chronic kidney disease, unspecified; I50.9 Heart failure, unspecified; E03.9 Hypothyroidism, unspecified; Z91.041 Radiographic dye allergy status; Z88.5 Allergy status to narcotic agent; Z88.8 Allergy status to other drugs, medicaments and biological substances; Z79.4 Long term (current) use of insulin; Z79.899 Other long term (current) drug therapy; Z95.818 Presence of other cardiac implants and grafts; Z90.49 Acquired absence of other specified parts of digestive tract

== ENCOUNTER → 2021-03-05 | Outpatient (CLI) | payer MEDICARE ==
[2021-03-05 14:41] LABS: BASO # 0.1 10*3/uL (0.0-0.1); EOS # 0.4 10*3/uL (0.0-0.4); HEMATOCRIT 35.2 % (37.0-47.0); LYMPH % 9.7 % (27.0-41.0); MEAN CELL VOLUME 91.2 fl (81.0-99.0); MEAN CORPUSCULAR HGB 29.5 pg (27.0-31.0); MEAN CORPUSCULAR HGB CONC 32.4 g/dl (33.0-37.0); MEAN PLATELET VOLUME 12.7 fl (9.6-12.3); MONO # 0.9 10*3/uL (0.1-1.0); MONO % 8.9 % (3.0-9.0); NEUT # 7.9 10*3/uL (2.3-7.9); NEUT % 75.6 % (47.0-73.0); PLATELET COUNT AUTOMATED 256 10*3/uL (130-400); RED BLOOD COUNT 3.86 10*6/uL (4.10-5.10); RED CELL DISTRI WIDTH 14.6 % (0-14.5); WHITE BLOOD COUNT 10.4 10*3/uL (4.8-10.8)
== END | disposition home or self-care (01) ==
LOC: LAB 14:24
PROVIDERS: ATTEND Internal Medicine
DX: I25.10 Atherosclerotic heart disease of native coronary artery without angina pectoris (principal); F41.1 Generalized anxiety disorder; D64.9 Anemia, unspecified

== ENCOUNTER → 2022-02-02 | Outpatient (CLI) | payer MEDICARE ==
[2022-02-02 09:23] LABS: BASO # 0.1 10*3/uL (0.0-0.1); BASO % 0.8 % (0.0-1.0); EOS # 0.2 10*3/uL (0.0-0.4); EOS % 2.5 % (1.0-4.0); HEMATOCRIT 39.6 % (37.0-47.0); LYMPH # 1.3 10*3/uL (1.3-4.4); LYMPH % 14.4 % (27.0-41.0); MEAN CELL VOLUME 85.9 fl (81.0-99.0); MEAN CORPUSCULAR HGB 27.5 pg (27.0-31.0); MEAN CORPUSCULAR HGB CONC 32.1 g/dl (33.0-37.0); MEAN PLATELET VOLUME 12.9 fl (9.6-12.3); MONO % 10.3 % (3.0-9.0); NEUT # 6.7 10*3/uL (2.3-7.9); NEUT % 71.6 % (47.0-73.0); PLATELET COUNT AUTOMATED 255 10*3/uL (130-400); RED BLOOD COUNT 4.61 10*6/uL (4.10-5.10); RED CELL DISTRI WIDTH 13.4 % (0-14.5); WHITE BLOOD COUNT 9.3 10*3/uL (4.8-10.8)
[2022-02-02 09:46] LABS: CREATININE 1.92 mg/dL (0.55-1.02); POTASSIUM 4.1 mmol/L (3.5-5.1)
[2022-02-02 09:53] LABS: FREE T4 1.48 ng/dl (0.76-1.46); THYROID STIM HORMONE (HS) 0.986 uIU/ml (0.358-4.75); TOTAL PROTEIN 7.7 gm/dL (6.4-8.2)
== END | disposition home or self-care (01) ==
LOC: LAB 09:04
PROVIDERS: ATTEND Internal Medicine
DX: I13.10 Hypertensive heart and chronic kidney disease without heart failure, with stage 1 through stage 4 chronic kidney disease, or unspecified chronic kidney disease (principal); E11.22 Type 2 diabetes mellitus with diabetic chronic kidney disease; E03.9 Hypothyroidism, unspecified; D63.1 Anemia in chronic kidney disease; N18.31 Chronic kidney disease, stage 3a; D51.0 Vitamin B12 deficiency anemia due to intrinsic factor deficiency; I25.10 Atherosclerotic heart disease of native coronary artery without angina pectoris; Z13.0 Encounter for screening for diseases of the blood and blood-forming organs and certain disorders involving the immune mechanism; Z13.1 Encounter for screening for diabetes mellitus; Z13.21 Encounter for screening for nutritional disorder; Z13.29 Encounter for screening for other suspected endocrine disorder; Z13.6 Encounter for screening for cardiovascular disorders; Z13.89 Encounter for screening for other disorder; Z13.9 Encounter for screening, unspecified

== ENCOUNTER → 2022-06-30 | Outpatient (CLI) | payer MEDICARE ==
[2022-06-30 14:01] LABS: CREATININE 1.51 mg/dL (0.55-1.02); FREE T4 1.23 ng/dl (0.76-1.46); POTASSIUM 4.3 mmol/L (3.5-5.1)
[2022-06-30 14:08] LABS: THYROID STIM HORMONE (HS) 1.94 uIU/ml (0.358-4.75)
== END | disposition home or self-care (01) ==
LOC: LAB 13:19
PROVIDERS: ATTEND Internal Medicine
DX: Z12.39 Encounter for other screening for malignant neoplasm of breast (principal); E03.9 Hypothyroidism, unspecified; R94.6 Abnormal results of thyroid function studies; R79.89 Other specified abnormal findings of blood chemistry

== ENCOUNTER 2022-12-15 06:11 | Observation (INO) | payer MEDICARE ==
[~2022-12-15] VITALS: Ht 162.5 cm; Wt 75.8 kg
[2022-12-15 06:15] VITALS: BP 147/75
[2022-12-15 08:00] LABS: BASO # 0.1 10*3/uL (0.0-0.1); BASO % 0.5 % (0.0-1.0); EOS # 0.2 10*3/uL (0.0-0.4); EOS % 1.6 % (1.0-4.0); HEMATOCRIT 39.5 % (37.0-47.0); LYMPH # 1.1 10*3/uL (1.3-4.4); LYMPH % 8.7 % (27.0-41.0); MEAN CELL VOLUME 82.5 fl (81.0-99.0); MEAN CORPUSCULAR HGB 27.1 pg (27.0-31.0); MEAN CORPUSCULAR HGB CONC 32.9 g/dl (33.0-37.0); MEAN PLATELET VOLUME 13.2 fl (9.6-12.3); MONO % 7.5 % (3.0-9.0); NEUT # 10.6 10*3/uL (2.3-7.9); NEUT % 81.4 % (47.0-73.0); PLATELET COUNT AUTOMATED 219 10*3/uL (130-400); RED BLOOD COUNT 4.79 10*6/uL (4.10-5.10); RED CELL DISTRI WIDTH 14.2 % (0-14.5)
[2022-12-15 08:13] VITALS: BP 182/77
[2022-12-15 08:18] LABS: POTASSIUM 3.9 mmol/L (3.4-5.1); THYROID STIM HORMONE (HS) 3.959 uIU/ml (0.550-4.780); TOTAL PROTEIN 7.1 gm/dL (6.0-8.0)
[2022-12-15 08:34] LABS: BILIRUBIN Negative (Negative); BLOOD Negative (Negative); CLARITY Clear (Clear); COLOR Yellow (Yellow); GLUCOSE Negative (Negative); KETONE Negative (Negative); LEUKO ESTERASE Negative (Negative); NITRITE Negative (Negative); PH 7.5 (4.5-8.0); SPECIFIC GRAVITY <= 1.005 (1.001-1.030); UROBILINOGEN 0.2 E.U./dl (0.0-1.0)
[2022-12-15 08:45] VITALS: BP 169/58
[2022-12-15 08:56] LABS: EPITHELIAL CELLS 0-2; RBC 0-2 rbc/hpf (0-2); WBC 0-2 wbc/hpf (0-5)
[2022-12-15] MEDS ORDERED: HUMALOG100 UNIT/1 SC (13:05)
[2022-12-15] MEDS ORDERED: HYDRALAZINE HC100 MG PO (13:06)
[2022-12-15 13:50] VITALS: BP 177/80
[2022-12-15] MEDS ORDERED: ATARAX,VISTARIL50 MG PO (15:06)
[2022-12-15] MEDS ORDERED: LANTUS SOL100 UNIT/1 SC (15:07)
[2022-12-15] MEDS ORDERED: COREG3.125 MG PO (15:07)
[2022-12-15] MEDS ORDERED: HUMULIN N100 UNIT/2 SQ (15:08)
[2022-12-15] MEDS ORDERED: PLAVIX75 M1 PO (15:08)
[2022-12-15] MEDS ORDERED: INSULIN LI100 UNIT/2 SQ (15:12)
[2022-12-15 16:00] VITALS: BP 189/74
[2022-12-15 20:00] VITALS: BP 179/79
[2022-12-16] VITALS: BP 170/50
[2022-12-16 06:23] LABS: POTASSIUM 4.3 mmol/L (3.4-5.1)
[2022-12-16 06:24] LABS: HEMATOCRIT 33.8 % (37.0-47.0); MEAN CELL VOLUME 84.7 fl (81.0-99.0); MEAN CORPUSCULAR HGB 27.3 pg (27.0-31.0); MEAN CORPUSCULAR HGB CONC 32.2 g/dl (33.0-37.0); MEAN PLATELET VOLUME 14.1 fl (9.6-12.3); PLATELET COUNT AUTOMATED 185 10*3/uL (130-400); RED BLOOD COUNT 3.99 10*6/uL (4.10-5.10); RED CELL DISTRI WIDTH 14.3 % (0-14.5); WHITE BLOOD COUNT 8.5 10*3/uL (4.8-10.8)
[2022-12-16 06:25] LABS: MANUAL DIFF REFLEX YES
[2022-12-16 07:30] LABS: OVALOCYTES FEW; PLATELET SUFFICIENCY NORMAL (NORMAL); POLYCHROMASIA SLIGHT; TOTAL CELLS COUNTED 100 #CELLS
[2022-12-16 08:00] VITALS: BP 170/95
[2022-12-16] MEDS ORDERED: CARVEDILOL12.5 MG PO (09:48)
[2022-12-16] MEDS ORDERED: MECLIZINE HCL25 M2 PO (09:48)
== END 2022-12-16 17:47 | disposition home or self-care (01) ==
LOC: ED 06:11 → EDHOLD 11:19 → ICCU 12:57
PROVIDERS: Emergency Medicine; ADMIT Internal Medicine; ATTEND Internal Medicine
DX: R42 Dizziness and giddiness (principal); R26.2 Difficulty in walking, not elsewhere classified; R53.1 Weakness; I12.9 Hypertensive chronic kidney disease with stage 1 through stage 4 chronic kidney disease, or unspecified chronic kidney disease; E11.22 Type 2 diabetes mellitus with diabetic chronic kidney disease; N18.32 Chronic kidney disease, stage 3b; I25.10 Atherosclerotic heart disease of native coronary artery without angina pectoris; F41.1 Generalized anxiety disorder; E03.9 Hypothyroidism, unspecified; Z88.5 Allergy status to narcotic agent; Z88.8 Allergy status to other drugs, medicaments and biological substances; Z91.048 Other nonmedicinal substance allergy status; Z79.4 Long term (current) use of insulin; Z79.899 Other long term (current) drug therapy